=== PATIENT | male | born 1970 | race Caucasian/White ===

== ENCOUNTER 2021-10-26 07:16 | Outpatient (REF) | payer BC, SELFPAY ==
[2021-10-26 07:33] LABS: MANUAL DIFF FLAG NO
[2021-10-26 08:07] LABS: Basophils Absolute Auto 0.1 X10*3/uL (0.0-0.2); Eosinophils Absolute Auto 0.1 X10*3/uL (0.0-0.4); Eosinophils Percent Auto 2.7 % (0-4); Hematocrit 47.8 % (42.0-52.0); Hemoglobin 16.3 g/dl (14.0-18.0); Imm Gran Abs Auto 0.01 X10*3/uL (0.00-0.03); Imm Gran Pct Auto 0.2 % (0.0-0.4); Lymphocytes Absolute Auto 1.9 X10*3/uL (1.2-4.9); Lymphocytes Percent Auto 39.9 % (20-40); Mean Corpuscular HGB Conc 34.1 g/dl (31.0-36.0); Mean Corpuscular Hemoglobin 27.9 pg (27.0-33.0); Mean Corpuscular Volume 81.8 fL (80.0-98.0); Mean Platelet Volume 9.4 fL (9.4-12.4); Monocytes Absolute Auto 0.4 X10*3/uL (0.1-1.2); Monocytes Percent Auto 7.8 % (2-11); Neutrophils Absolute Auto 2.4 x10*3/uL (2.0-8.3); Neutrophils Percent Auto 48.4 % (45-73); Platelet Count 302 X10*3/uL (160-400); Red Blood Count 5.84 X10*6/uL (4.60-5.80); Red Cell Distribution Width 14.2 % (11.0-16.0); White Blood Count 4.9 X10*3/uL (4.8-10.8)
[2021-10-26 08:28] LABS: Alanine Aminotransferase 28 U/L (0-40); Albumin Level 4.3 g/dL (3.5-5.0); Alkaline Phosphatase 98 U/L (39-117); Anion Gap 14 (12-20); Aspartate Amino Transferase 19 U/L (5-37); Bilirubin Total 1.1 mg/dL (0.0-1.0); Blood Urea Nitrogen 15 mg/dL (9-16); Calcium 9.6 mg/dL (8.4-10.2); Carbon Dioxide 26 mmol/L (22-29); Chloride 104 mmol/L (96-108); Cholesterol 198 mg/dL; Estimated Glomerular Filt Rate > 60; Glucose Random 86 mg/dL (60-115); HDL Cholesterol 34 mg/dL; LDL Cholesterol Calculated 142 mg/dl; Potassium 4.6 mmol/L (3.3-5.1); Sodium 139 mmol/L (135-145); Total Protein 7.7 g/dL (6.5-8.0); Triglycerides 114 mg/dL; Uric Acid 8.8 mg/dL (3.4-7.0)
[2021-10-26 08:40] LABS: Appearance Urine CLEAR; Color Urine YELLOW; Glucose Urine UA NEG (NEG); Leukocyte Esterase Urine NEG (NEG); Nitrite Urine NEG (NEG); Urine Blood NEG (NEG); Urine Ketones NEG (NEG); Urine Protein NEG (NEG-TRACE)
[2021-10-26 08:52] LABS: Free T4 (Free Thyroxine) 0.98 ng/dL (0.71-1.85)
[2021-10-26 08:59] LABS: Squamous Epithelial Cell Urine 1+ /LPF; WBC Urine 0-2 /HPF (0-4)
[2021-10-26 09:00] LABS: Bacteria Urine TRACE /LPF; RBC Urine 0 /HPF (0)
[2021-10-26 09:17] LABS: Folate 15.1 ng/mL (> or = 4.0); Vitamin B12 322 pg/mL (200-900)
== END 2021-10-26 07:17 | disposition home or self-care (01) ==
LOC: HO.LAB 07:16
PROVIDERS: PCP Internal Medicine; Visit Provider Internal Medicine
DX: E78.00 Pure hypercholesterolemia, unspecified (principal)
CPT/HCPCS: 36415; 80053; 80061; 81001; 82607; 82746; 84439; 84443; 84550; 85025